=== PATIENT | male | born 1965 | race Caucasian/White ===

== ENCOUNTER 2017-06-08 08:06 | Emergency (ER) | payer OTHER ==
[2017-06-08 08:30] VITALS: BP 134/78
== END 2017-06-08 10:15 | disposition home or self-care (01) ==
LOC: ED 08:06
DX: S91.012A Laceration without foreign body, left ankle, initial encounter (principal); W18.30XA Fall on same level, unspecified, initial encounter; Y93.89 Activity, other specified; Y92.89 Other specified places as the place of occurrence of the external cause; Y99.8 Other external cause status
CPT/HCPCS: J2001; Q0092

== ENCOUNTER 2017-06-10 12:12 | Emergency (ER) | payer OTHER | END 2017-06-10 12:42 | disposition left against medical advice (07) | LOC: ED 12:12 | DX: S81.812D Laceration without foreign body, left lower leg, subsequent encounter (principal); Z53.21 Procedure and treatment not carried out due to patient leaving prior to being seen by health care provider ==

== ENCOUNTER 2017-06-10 20:38 | Emergency (ER) | payer OTHER ==
[~2017-06-10] VITALS: Ht 175.3 cm; Wt 122.0 kg
[2017-06-10 22:30] VITALS: BP 130/69
== END 2017-06-10 22:30 | disposition home or self-care (01) ==
LOC: ED 20:38
DX: S81.812D Laceration without foreign body, left lower leg, subsequent encounter (principal); X58.XXXD Exposure to other specified factors, subsequent encounter; Y92.89 Other specified places as the place of occurrence of the external cause; Y99.8 Other external cause status

== ENCOUNTER 2017-06-23 12:54 | Emergency (ER) | payer OTHER | END 2017-06-23 14:02 | disposition left against medical advice (07) | LOC: ED 12:54 | DX: Z53.21 Procedure and treatment not carried out due to patient leaving prior to being seen by health care provider (principal) ==